=== PATIENT | male | born 1980 | race Caucasian/White ===

== ENCOUNTER 2024-09-14 09:41 | Observation (INO) ==
[~2024-09-14 09:41] MED LIST: Dexamethasone IV 4 MG/ML VIAL 1 ml VIAL ONE; Lidocaine 2% PF 5 ML VIAL ONE; Midazolam 2 mg/2 ml VIAL 1 mg/ml 2 ml VIAL (2 mg) ONE; Naloxone 0.4 mg VIAL 0.4 mg/ml 1 ml VIAL IV PRN; Ondansetron 4 mg VIAL 2 MG/ML 2 ml VIAL ONE; Propofol 10 MG/ML 20 ML BTL ONE; Rocuronium 50 mg VIAL 10 mg/ml 5 ml VIAL (50 mg) ONE; fentaNYL 100 mcg/2 ml 50 MCG/ML VIAL ONE
[2024-09-14] MEDS: Buffered Lidocaine 1% SYRIN 1 ml INTRADERM ONE (10:01)
[2024-09-14] MEDS ORDERED: ceFAZolin 2 GM PREMIX 2 GM/50 ML BAG ONE (10:03)
[2024-09-14] MEDS ORDERED: Chlorhexidine MOUTHWASH 0.12% 15 ML UDC ONE (10:03)
[2024-09-14 10:27] LABS: Rapid COVID-19 Molecular Undetected (Undetected)
[2024-09-14] MEDS: Lactated Ringers 1000 ml BAG 1,000 ML IV SCH ×2 (10:42→16:32)
[2024-09-14] MEDS ORDERED: Propofol 10 MG/ML 20 ML BTL ONE ×2 (11:00→12:49)
[2024-09-14] MEDS ORDERED: Lidocaine 1% w EPI 1:100,000 MDV 50 ML VIAL ONE (12:03)
[2024-09-14] MEDS ORDERED: ceFAZolin VIAL VIAL ONE (12:03)
[2024-09-14] MEDS ORDERED: KETAMINE HCL 10 MG/ML 20 ml VIAL (200 MG) ONE (13:06)
[2024-09-14] MEDS ORDERED: Lidocaine 4% TOPICAL 50 ML TOP.SOLN ONE (13:09)
[2024-09-14] MEDS ORDERED: Lidocaine 2% PF 5 ML VIAL ONE ×2 (13:09→14:13)
[2024-09-14] MEDS ORDERED: HYDROmorphone 0.5 MG/0.5 ML SYRINGE ONE (13:29)
[2024-09-14] MEDS ORDERED: Acetaminophen IV 1 GM/100ML 1,000 MG/100 ML BAG IV ONE (13:30)
[2024-09-14] MEDS ORDERED: Senna TAB 8.6 mg TAB PO PRN (14:41)
[2024-09-14] MEDS ORDERED: Ondansetron 4 mg VIAL 2 MG/ML 2 ml VIAL IV PRN (14:41)
[2024-09-14] MEDS ORDERED: Phenol 1.4% Throat Spray BTL MT PRN (14:41)
[2024-09-14] MEDS ORDERED: Dextran 70/Hypromellose Tears Eye Drops 15 ml BTL (for Artificials Tears) BOTH EYES PRN (14:41)
[2024-09-14] MEDS ORDERED: Benzocaine/Menthol LOZ MT PRN (14:41)
[2024-09-14] MEDS ORDERED: Calcium Carb (TUMS) 500 mg CHEW TAB PO PRN (14:41)
[2024-09-14] MEDS ORDERED: Morphine 2 MG/ML SYRINGE IV PRN (14:41)
[2024-09-14] MEDS ORDERED: Magnesium Hydroxide LIQ 30 ML UDC PO PRN (14:41)
[2024-09-14] MEDS ORDERED: fentaNYL 100 mcg/2 ml 50 MCG/ML VIAL ONE ×4 (14:46→15:37)
[2024-09-14] MEDS: fentaNYL 100 mcg/2 ml 50 MCG/ML VIAL IV PRN (15:00)
[2024-09-15 05:38] VITALS: BP 142/99
== END 2024-09-15 10:04 | disposition home or self-care (01) ==
LOC: AA 09:41 → INTOOBSV 09:41 → SSU 14:41
PROVIDERS: ADMIT Neurological Surgery; ATTEND Neurological Surgery